=== PATIENT | male | born 1985 | race Caucasian/White ===

== ENCOUNTER 2018-05-18 09:16 | Emergency (ER) | payer OTHER, SELFPAY ==
[2018-05-18 09:20] VITALS: BP 138/78; PULSE 86; RESP 18; TEMP 36.7; O2SAT 98
--- NOTE | 2018-05-18 09:29 | ED.GENADUL ---
Disposition Clinical Impression: Knee pain, left Disposition: HOME Condition: Stable Instructions: Knee Pain (ED), Knee Immobilizer (ED) Additional Instructions: Please return immediately to the emergency department if you develop any new or worsening symptoms or if you become otherwise concerned. Is extremely important that you make an appointment to be seen by your primary care doctor and by an orthopedist within the next 1-2 weeks in follow-up for this visit. Referrals: Art Cary MD [ [facility] STAFF PHYSICIAN] - Tia Goldsmith [NURSE PRACTITIONER] - Medical Decision Making - Radiology Data Left knee x-ray visualized and interpreted by myself in conjunction with radiology: No acute process - Medical Decision Making Sam Walters is a 33-year-old man without reported history of medical problems presenting to the emergency department with left knee pain for 1 week after hearing a popping sound during a twisting motion while standing. On exam patient is very well-appearing. He has mild tenderness palpation over the medial popliteal region of the left knee and reproducible pain with valgus stress to left knee. He has full range of motion of the knee joint. His exam is otherwise unremarkable. Suspect likely meniscal injury. Plan for screening x-rays. Knee x-ray okay. Plan for knee immobilizer. Lengthy discussion with patient regarding return to emergency department cautions and importance of outpatient follow-up with a primary care doctor and also with orthopedics. Patient is amenable to the plan. Patient placed on care management list to establish PCP and on orthopedic list for follow-up. History of Present Illness - General Chief complaint: Orthopedic Stated complaint: KNEE INJURY Time Seen by Provider: 05/18/18 09:29 Source: patient, RN notes reviewed Mode of arrival: ambulatory Limitations: no limitations - History of Present Illness Initial comments: Corey Walters is a 33-year-old man without reported history of major medical problems presenting to the emergency department with left knee pain. Patient reports that approximately 1 week ago he was standing at work when he made a twisting motion and felt a popping sensation in his left knee. Patient reports that he had significant swelling of the left knee after that, and swelling has subsequently waxed and waned. Patient reports that he still continues to have pain, although it has been gradually improving. He has pain-free periods when he is at rest, but with walking or prolonged standing he will begin to have pain in the left knee again. Has had continued popping in the left knee which seem to proceed interval periods of pain. He denies any other pain or injury, denies any other symptoms. No tingling, no numbness, no weakness of the legs, no recent illnesses, no fever, no cough, no shortness of breath, no rash. Has been eating and drinking normally. Review of Systems Constitutional: denies: fever Eyes: denies: eye pain ENT: denies: ear pain, throat pain, dental pain Respiratory: denies: cough, shortness of breath Cardiovascular: denies: chest pain Endocrine: denies: increased hunger, increased thirst Gastrointestinal: denies: vomiting Musculoskeletal: as per HPI, arthralgia (left knee). denies: back pain, myalgia Skin: denies: rash, lesions Neurological: denies: headache, weakness, numbness Past Medical History - Past Medical History Medical history: no medical history. denies: diabetes - Social History Smoking status: current everyday smoker Alcohol use: occasionally Drug use: marijuana General Exam - General Limitations: no limitations General appearance: alert, in no apparent distress, other (Pleasant, well and nontoxic appearing, conversing normally) - Head Head exam: Present: atraumatic, normocephalic, normal inspection - Eye Eye exam: Absent: scleral icterus, conjunctival injection Pupils: Absent: irregular, unequal, miosis, mydriatic - ENT ENT exam: Present: mucous membranes moist - Neck Neck exam: Present: normal inspection - Respiratory Respiratory exam: Absent: respiratory distress - Cardiovascular Cardiovascular Exam: Present: regular rate, normal rhythm - Extremities Exam Extremities exam: Present: normal inspection, full ROM (Able to fully range left knee with some pain. Pain reproduced with valgus stress to the left knee. ), tenderness (Mild tenderness to palpation over medial popliteal region.), other (Anterior/posterior drawer negative.). Absent: pedal edema, joint swelling, calf tenderness - Neurological Exam Neurological exam: Present: alert, normal gait, other (Normal tone, grossly nonfocal). Absent: altered - Psychiatric Psychiatric exam: Present: normal affect, normal mood - Skin Skin exam: Present: warm, dry, intact, normal color. Absent: rash Course Vital Signs - 24 hr 05/18/18 09:20 Temperature 36.7 C Pulse 86 Respiratory 18 Rate Blood Pressure 138/78 Pulse Oximetry 98
--- NOTE | 2018-05-18 09:38 | DI.REPORT_ITS ---
SYMPTOMS/DIAGNOSIS: POP WITH TWISTING MOTION, NOW LT KNEE PAIN LEFT KNEE: No acute fracture or joint effusion is seen. There is spurring at the quadriceps insertion on the patella and a spur at the posterior aspect of the proximal tibia. IMPRESSION: No acute abnormality.
[2018-05-18 10:48] VITALS: BP 138/78; PULSE 86; RESP 18; TEMP 36.7; O2SAT 98
--- NOTE | 2018-05-19 08:49 | CMPROGNOTE_ITS ---
Care Management Progress Note 05/19-Dr. Ivonne Florez requested assistance with a PCP f/u in 1-2 weeks for Right knee pain. Patient is new to area and needs to establish with a PCP. Suzanne RUSSO ([facility]) continuous improvement coordinator. Referral faxed to [facility] today.
== END 2018-05-18 11:06 | disposition home or self-care (01) ==
PROVIDERS: Emergency Provider Student in an Organized Health Care Education/Training Program
DX: M25.562 Pain in left knee (principal); X50.9XXA Other and unspecified overexertion or strenuous movements or postures, initial encounter
CPT/HCPCS: 29505; 73562; 99283; L1830

== ENCOUNTER 2020-10-27 07:54 | Outpatient (CLI) | payer SELFPAY ==
[2020-10-28 16:58] LABS: COVID-19 RT-PCR Result NEGATIVE (Negative)
== END 2020-10-27 08:14 ==
PROVIDERS: Visit Provider Family Medicine
DX: Z11.52 Encounter for screening for COVID-19 (principal)
CPT/HCPCS: U0003

== ENCOUNTER 2021-03-21 00:59 | Emergency (ER) | payer SELFPAY ==
--- NOTE | 2021-03-21 01:00 | DI.CT_ITS ---
Exam(s) CT RENAL COLIC WO EXAM: CT RENAL COLIC WO CLINICAL HISTORY: left flank pain. TECHNIQUE: Imaging Protocol: Axial computed tomography images with coronal and sagittal reformatted images were created and reviewed CONTRAST MATERIAL: Intravenous: none Oral: None COMPARISON: No exams were available for comparison FINDINGS: VISUALIZED LUNG BASES: No nodules nor pleural effusions evident. ABDOMEN: There is no ascites. LIVER: There are no obvious focal hepatic lesions evident of this noninfused study. Liver is hypoden se implying steatosis. GALLBLADDER/BILIARY: No obvious gallbladder pathology. CBD is not dilated. PANCREAS: There is very mild streaking around the pancreatic head and uncinate. This may represent s ubtle pancreatitis. Pancreatic duct is not dilated. No obvious pancreatic mass evident on this federico nfused study. SPLEEN: Spleen is not enlarged. No obvious intrasplenic lesions. ADRENALS: There are no significant adrenal masses. KIDNEYS:No cysts evident. No solid renal masses. There are no calculi in the kidneys but there is a 3 millimeter calculus in the distal left ureter with mild dilatation of the collecting system above t his level. No calculi in the nondistended urinary bladder.. ABDOMINAL AORTA: Abdominal aorta is not enlarged. LYMPH NODES: There is no retroperitoneal nor paraaortic adenopathy. ABDOMINAL WALL: No evidence of significant anterior abdominal wall hernia. GI: There is no evidence of bowel obstruction, free air, nor abscess. PELVIS: LYMPH NODES: There is no intrapelvic nor inguinal adenopathy. GI: No evidence of appendicitis.No evidence of sigmoid diverticulitis. URINARY BLADDER: No calculi nor obvious masses evident REPRODUCTIVE: Prostate not enlarged. OSSEOUS: No significant osseous lesions. IMPRESSION: 1. There is a 3 millimeter calculus in the lower left ureter with mild dilatation left collecting sys tem above this level. There are no remaining radiopaque calculi in the kidneys nor other focal renal findings. 2. Hepatic steatosis. 3. Mild stranding around the pancreatic head may indicate mild pancreatitis. Correlation with approp riate blood work is recommended. RADIATION DOSE DELIVERED: 1,488.35mGy.cm Total DLP DATA REPOSITORY: All CT scans at this facility are submitted to the National Radiology Data Registry (NRDR) Dose Index Registry (DIR) with the [employer] (A[employer]). RADIATION OPTIMIZATION: All CT scans at this facility use at least one of these dose optimization te chniques: automated exposure control; mA and/or kV adjustment per patient size (includes targeted exa ms where dose is matched to clinical indication); or iterative reconstruction.
[2021-03-21 01:02] VITALS: PULSE 65; RESP 18; TEMP 36.2; O2SAT 99
--- NOTE | 2021-03-21 01:16 | ED.GENADUL_ITS ---
Discharge Plan Disposition Patient Disposition: HOME Condition: Stable Discharge Details Clinical Impression: Acute left flank pain, Calculus of left ureter Primary Care Provider: Arlin,Local ED Provider: Tony Aguirre Home Meds and New Rx's Prescriptions: New ondansetron 4 mg tablet,disintegrating 4 mg PO Q8H PRN (Reason: nausea and vomiting) Qty: 30 RF: 0 oxycodone 5 mg tablet 5 mg PO Q6H PRNQty: 10 RF: 0 No Action No Known Home Meds RF: 0 Discharge Instructions Instructions: Kidney Stones (ED) Additional Instructions: take 1000mg tylenol and 600mg ibuprofen every 6 hours for pain as needed. If you need additional pain relief take 1 oxycodone, do not drink alcohol or operate heavy machinery if you take this medicine you should be contacted with an appointment for urology follow up if you feel more ill, have persistent vomit or fevers return to the emergency d epartment Stand Alone Forms: Work Release Medical Decision Making 35 yo male who denies chronic medical problems comes in with left lower abdomen /flank pain radiating to his left testicle/groin area. He states he went to bed well and woke up 30 minutes ago with this pain along with nausea and no vomit, denies pain similar to this in the past. He has no tenderness on abdomen exam, no cva tenderness, no swelling of the testicles and no tenderness of the testicles with intact cremasteric reflex. He appears in pain on exam, suspect kidney stone, will obtain ct renal colic and reassess. Exam not consistent with testicular torsion pt still has pain after toradol, will give dilaudid. CT on my read shows left distal ureter stone, awaiting vrad read. Mild increase in wbc which could be from stress response, awaiting ua ct confirms 2.5mm distal left ureter stone, they also note trace stranding adjacent to duodenum and pancreatic head which could indicate trace pancreatitis or duodenal disease, has no gi symptoms and lipase is normal so doubt these diagnoses. Awaiting ua pt remains stable ua reassuring against coexisting infection, he is more comfortable and stable for d/c. will place on f/u list to see urology as soon as possible, return precautions given Differential Diagnosis Differential Diagnosis: diverticulitis, kidney stone Imaging Data Radiologic Study: Attestation: I personally reviewed and interpreted this imaging study as follows: Imaging: CT Scan Radiologist's impression: 1. Trace stranding adjacent to the duodenum and pancreatic head, could indicate trace pancreatitis or duodenal disease. Clinically correlate. 2. 2.5 mm calculus left distal ureter with minimal left hydroureteronephrosis. Lab Data Lab results reviewed: Yes I reviewed the patient's lab results. HPI General Mode of arrival: ambulatory . Date/Time Provider Initiated Documentation: 03/21/21 01:06 . Limitations to Documentation: no limitations . Information obtained by: patient . History of Present Illness 35 year old M presents to the emergency department with the chief complaint of left lower abdomen and oblique pain, described as moderate, with intensity rated at 7. Quality is described as stabbing, and is localized to the abdomen. Patient started experiencing this minute(s) (30) and it has been constant. No relieving factors improve symptom(s), No exacerbating factors reported . Patient notes other (nausea). Patient did receive the following treatments prior to arrival, none Related Data Home Medications Medication Instructions Recorded Confirmed Unknown [No Known Home Meds] 03/21/21 03/21/21 ondansetron 4 mg PO Q8H PRN #30 tab 03/21/21 oxycodone 5 mg PO Q6H PRN #10 tab 03/21/21 Previous Rx's Medication Instructions Recorded ondansetron 4 mg PO Q8H PRN #30 tab 03/21/21 oxycodone 5 mg PO Q6H PRN #10 tab 03/21/21 Allergies Allergy/AdvReac Type Severity Reaction Status Date / Time No Known Drug Allergies Allergy Unverified 03/21/21 01:03 General Stated Complaint: Abd Prob STEVEN: 3 Review of Systems All systems reviewed & are unremarkable except as noted in HPI and below Constitutional Constitutional: Denies chills, Denies fever(s) and Denies weakness Cardiovascular Cardiovascular: Denies chest pain and Denies dyspnea Respiratory Respiratory: Denies cough and Denies dyspnea Gastrointestinal Gastrointestinal: Denies nausea and Denies vomiting Genitourinary Genitourinary: Denies dysuria Neurologic Neurologic: Denies weakness PFSH Social History Smoking/Tobacco Use Status: Current every day Tobacco Type: cigarettes Smoking risk assessment performed?: Yes Alcohol Intake: never Drug use: Daily Substance use type: marijuana Do you feel safe at home: Yes Do you feel safe in your relationship?: Yes Exam Const General: no acute distress Orientation: alert HENMT Head: normal to inspection Ears: external ears normal General nose exam: external nose normal Mouth: moist mucous membranes Eyes General: appearance normal, both eyes and all related structures Neck Neck: normal visual inspection Resp Effort & Inspection: normal respiratory effort and able to speak in complete se ntences Cardio Rate: regular rate GI Palpation: soft Skin General skin exam: no rashes or lesions noted Neuro General: patient alert and patient oriented x3 Extrem General: normal to inspection Psych Mental Status: mental status grossly normal Course Vital Signs Vital signs: Vital Signs Temperature 36.2 C L 03/21/21 01:02 Pulse 65 03/21/21 01:02 Respiratory Rate 18 03/21/21 01:02 Pulse Oximetry 99 03/21/21 01:02 Temperature 36.2 C L 03/21/21 01:02 Temperature Source Skin 03/21/21 01:02 Pulse 65 03/21/21 01:02 Respiratory Rate 18 03/21/21 01:02 Respiratory Effort Non-Labored 03/21/21 01:04 Pulse Oximetry 99 03/21/21 01:02 Pain Level 13 03/21/21 01:02
[2021-03-21] MEDS: Ketorolac 15 MG/ML VIAL IVP (01:29)
[2021-03-21] MEDS: Normal Saline 1,000 ML 1000 ML IV ×2 (01:29→02:49)
[2021-03-21] MEDS: Ondansetron 4 MG/2 ML VIAL IVP (01:30)
[2021-03-21 01:38] LABS: Abs Immature Grans 0.11 10^3/uL (0.0-0.06); HCT 43.9 % (40.0-50.0); HGB 14.5 g/dL (13.5-17.5); MCH 29.5 pg (27.0-33.0); MCV 89.2 fL (80-95); Nucleated RBC 0 %; Platelet Count 372 10^3/uL (130-400); RBC 4.92 10^6/uL (4.36-5.78); RDW 12.8 % (11.8-14.1); RDW-SD 42.3 fL; WBC 14.95 10^3/uL (4.4-10.8)
[2021-03-21 01:53] LABS: Absolute Lymphocyte Count 4.49 10^3/uL (1.2-3.4); Absolute Neutrophil Count 8.37 10^3/uL (1.2-6.7); Atypical Lymphocytes % 3
[2021-03-21 01:54] LABS: Diff Comment Manual Differential; RBC Morphology Normal
[2021-03-21 01:57] LABS: ALT 44 U/L (16-63); AST 27 U/L (15-37); Albumin 3.7 g/dL (3.4-5.0); Alkaline Phosphatase 81 U/L (46-116); Anion Gap 8.6 mmol/L (3-11); BUN 18 mg/dL (7-18); Bilirubin, Total 0.4 mg/dL (0.2-1.0); CO2 28.4 mmol/L (21.0-32.0); CREATININE 1.1 mg/dL (0.70-1.30); Calcium 8.9 mg/dL (8.5-10.1); Chloride 104 mmol/L (98-107); Glucose 120 mg/dL (74-106); Lipase 59 U/L (73-393); Potassium 3.2 mmol/L (3.5-5.1); Sodium 141 mmol/L (136-145); Total Protein 7.8 g/dL (6.4-8.2)
[2021-03-21] MEDS: HYDROmorphone 2 MG/ML VIAL 1 MG IVP ×2 (02:07→03:05)
[2021-03-21 02:08] VITALS: BP 137/82; PULSE 66; RESP 16; O2SAT 100
--- NOTE | 2021-03-21 02:39 | DI.VRAD_ITS ---
PROCEDURE INFORMATION: Exam: CT Abdomen And Pelvis Without Contrast Exam date and time: 03/21/2021 1:11 AM Age: 35 years old Clinical indication: Other: Lt flank pain TECHNIQUE: Imaging protocol: Computed tomography of the abdomen and pelvis without contrast. COMPARISON: No relevant prior studies available. FINDINGS: Liver: Hepatic steatosis. Gallbladder and bile ducts: Normal. No calcified stones. No ductal dilation. Pancreas: Trace stranding adjacent to the duodenum and pancreatic head, could indicate trace pancreatitis or duodenal disease. Spleen: Normal. No splenomegaly. Adrenal glands: Normal. No mass. Kidneys and ureters: 2.5 mm calculus left distal ureter with minimal left hydroureteronephrosis. Stomach and bowel: Unremarkable. No obstruction. No mucosal thickening. Appendix: No evidence of appendicitis. Intraperitoneal space: Unremarkable. No free air. No significant fluid collection. Vasculature: Unremarkable. No abdominal aortic aneurysm. Lymph nodes: Unremarkable. No enlarged lymph nodes. Urinary bladder: Unremarkable as visualized. Reproductive: Unremarkable as visualized. Bones/joints: Unremarkable. No acute fracture. Soft tissues: Unremarkable. IMPRESSION: 1. Trace stranding adjacent to the duodenum and pancreatic head, could indicate trace pancreatitis or duodenal disease. Clinically correlate. 2. 2.5 mm calculus left distal ureter with minimal left hydroureteronephrosis. Dictated and Authenticated by: Tony Young MD. Ordering:BRIAN Jimenez MD
[2021-03-21 03:42] LABS: Bilirubin Negative (Negative); Blood Moderate (Negative); Clarity Clear (Clear); Glucose Negative (Negative); Ketones Trace mg/dL (Negative); Leukocyte Esterase Negative (Negative); Nitrite Negative (Negative); Specific Gravity >= 1.030 (1.005-1.025); Urobilinogen 0.2 EU/dL (Up TO 0.2)
[2021-03-21 03:48] LABS: Bacteria Rare HPF (Negative); C & S Indicated? No; Casts Negative LPF (Negative); Crystals Negative HPF (Negative); Epithelial Cells Rare HPF (Negative); Mucus Negative (Negative); WBC Negative HPF (0-5)
--- NOTE | 2021-03-21 03:56 | NUR.NOTE ---
referal sent to urology for kidney stones 03/21/21
[2021-03-21 04:02] VITALS: BP 124/75; PULSE 72; RESP 14; O2SAT 96
== END 2021-03-21 04:10 | disposition home or self-care (01) ==
LOC: ER 03:50
PROVIDERS: Emergency Provider Emergency Medicine
DX: R10.32 Left lower quadrant pain (principal); N20.1 Calculus of ureter
CPT/HCPCS: 80053; 83690; 96361; 96374; 96375; 96376; 99284; 74176; 81003; 81015; 85025; J1885; J2405